=== PATIENT | female | born 1960 | race Caucasian/White ===

== ENCOUNTER 2016-02-23 06:15 | Day surgery (SDC) | payer OTHER ==
[2016-02-23] MEDS ORDERED: LACTATED RINGERS 1,000 ML IV ONE ×2 (07:00→08:29)
[2016-02-23] MEDS ORDERED: MIDAZOLAM 2 MG/2 ML VIAL IVP ONE (08:22)
[2016-02-23] MEDS ORDERED: fentaNYL 250 MCG/5 ML VIAL IVP ONE (08:22)
== END 2016-02-23 06:16 | disposition home or self-care (01) ==
PROC: 0DBE8ZX Excision of Large Intestine, Via Natural or Artificial Opening Endoscopic, Diagnostic (ICD-10-PCS; 2016-02-23)
PROC: 0DB98ZX Excision of Duodenum, Via Natural or Artificial Opening Endoscopic, Diagnostic (ICD-10-PCS; 2016-02-23)
PROC: 0DB68ZX Excision of Stomach, Via Natural or Artificial Opening Endoscopic, Diagnostic (ICD-10-PCS; 2016-02-23)
PROC: 0DB58ZX Excision of Esophagus, Via Natural or Artificial Opening Endoscopic, Diagnostic (ICD-10-PCS; 2016-02-23)
PROC: 0DBL8ZZ Excision of Transverse Colon, Via Natural or Artificial Opening Endoscopic (ICD-10-PCS; principal; 2016-02-23 07:30)
PROC: 0DBP8ZX Excision of Rectum, Via Natural or Artificial Opening Endoscopic, Diagnostic (ICD-10-PCS; 2016-02-23 07:30)
DX: R19.4 Change in bowel habit (principal); D12.3 Benign neoplasm of transverse colon; R10.9 Unspecified abdominal pain; K21.0 Gastro-esophageal reflux disease with esophagitis; K29.80 Duodenitis without bleeding; K44.9 Diaphragmatic hernia without obstruction or gangrene; K29.70 Gastritis, unspecified, without bleeding; K22.2 Esophageal obstruction; R19.7 Diarrhea, unspecified; R06.83 Snoring
CPT/HCPCS: 43239; 45380; 45384; J3010; J7120

== ENCOUNTER 2016-06-11 12:12 | Outpatient (CLI) | payer OTHER | END 2016-06-11 12:13 | disposition home or self-care (01) | DX: Z12.31 Encounter for screening mammogram for malignant neoplasm of breast (principal) ==

== ENCOUNTER 2016-06-13 08:18 | Emergency (ER) | payer OTHER ==
--- NOTE | 2016-06-13 09:40 | ED Physician Documentation ---
History of Present Illness - Stated complaint Stated Complaint: LEG PX - Chief complaint Chief Complaint: General - History obtained from History obtained from: Patient - History of Present Illness Timing: How many weeks ago (1) - Additonal information Additional information: 55 y/o female took a plane trip to [place] one month ago and when she arrived there she noticed some pain in the back of the left knee with some swelling. This seemed to get some better but then the calf began to hurt about a week ago and this is now bad enough that it hurts to be up and around on the leg and the pain is on the medial aspect of the calf. She has not had this before. Review of Systems Constitutional: denies: Fever, Chills, Fatigue, Sweats Eyes: denies: Decreased vision Ears: denies: Ear pain Nose: denies: Congestion Throat: denies: Sore throat Cardiac: denies: Chest pain / pressure, Palpitations Respiratory: denies: Dyspnea, Cough GI: denies: Nausea, Vomiting, Constipation, Diarrhea : denies: Dysuria, Frequency Skin: denies: Rash Musculoskeletal: reports: Extremity pain, Extremity swelling, Pain with weight bearing. denies: Neck pain, Back pain Neurologic: denies: Generalized weakness, Focal weakness, Numbness PD PAST MEDICAL HISTORY - Past Medical History Cardiovascular: None Respiratory: None Endocrine/Autoimmune: HyPOthyroidism GI: GERD, Other : None HEENT: None Psych: Anxiety, Claustrophobia Musculoskeletal: None Derm: None - Present Medications Home Medications: Ambulatory Orders Medication Instructions Recorded Confirmed Fluticasone Propionate [Flonase 9.9 ml NS BID 02/20/16 06/13/16 Allergy Relief] Liothyronine Sodium [Cytomel] 25 mcg PO TID 02/20/16 06/13/16 Loperamide [Imodium] 2 mg PO TID 02/20/16 06/13/16 diphenhydrAMINE [Benadryl] 25 mg PO ONCE 02/20/16 06/13/16 - Allergies Allergies/Adverse Reactions: Allergies Allergy/AdvReac Type Severity Reaction Status Date / Time Sulfa (Sulfonamide AdvReac Headache Verified 02/20/16 13:15 Antibiotics) - Social History Does the pt smoke?: No Smoking Status: Never smoker Does the pt drink ETOH?: Yes Does the pt have substance abuse?: No PD ED PE NORMAL - Vitals Vital signs reviewed: Yes (hypertensive) - General General: Alert and oriented X 3, No acute distress, Well developed/nourished - HEENT HEENT: Atraumatic, PERRL, EOMI - Neck Neck: Supple, no meningeal sign - Respiratory Respiratory: No respiratory distress - Derm Derm: Normal color, Warm and dry, No rash - Extremities Extremities: No deformity, Other (There is trace sock edema to the left foot. There is pain to the medial calf without palpable cord. There is pain with dorsiflexion over the medial calf. There is pain in the posterior knee with a small bakers cyst. distal N/V is intact. ) - Neuro Neuro: No motor deficit, No sensory deficit - Psych Psych: Normal mood, Normal affect Results - Vitals Vitals: Vital Signs - 24 hr 06/13/16 06/13/16 06/13/16 08:20 10:21 12:20 Temperature 36.6 C 36.4 C L Heart Rate 78 76 68 Respiratory 16 14 16 Rate Blood Pressure 164/102 H 160/100 H 156/104 H O2 Saturation 98 95 96 Oxygen O2 Source Room air - Rads (name of study) Duplex veins left Radiology: Prelim report reviewed (Impression: 1. No evidence for deep venous thrombosis. 2. A to severe left popliteal fossa cysts (Fontaine's cyst)), EMP read indepedently, See rad report PD MEDICAL DECISION MAKING - ED course Complexity details: reviewed results, re-evaluated patient, considered differential, d/w patient ED course: 55 y/o female with left calf pain has a normal appearing venous duplex and a fontaine's cyst Departure - Departure Disposition: 01 Home, Self Care Clinical Impression: Fontaine's cyst of knee Qualifiers: Laterality: left Qualified Code(s): M71.22 - Synovial cyst of popliteal space [ Fontaine], left knee Condition: Stable Instructions: ED Cyst Fontaine Follow-Up: Brian Larson DO [Primary Care Provider] - Comments: Today in the Emergency Department your blood pressure was elevated. This can happen from the stress of the visit itself, from a current illness or circumstance or from uncontrolled hypertension. If you take blood pressure medications take your usual mediations, have your blood pressure re-checked in an appropriate setting and follow up any elevation with your primary care doctor. Discharge Date/Time: 06/13/16 12:21
--- NOTE | 2016-06-13 11:41 | Ultrasound Preliminary Report ---
Exam: US Duplex Ext Veins Left IMPRESSION: 1. No evidence for deep venous thrombosis. 2. A 2 cm left popliteal fossa cyst (Fontaine's cyst) [facility] SITE ID: [id number]
--- NOTE | 2016-06-13 11:44 | Ultrasound Report ---
EXAM: RIGHT/LEFT LOWER EXTREMITY VENOUS ULTRASOUND EXAM DATE: 06/13/2016 11:19 AM. CLINICAL HISTORY: Left leg pain and swelling S/P plane travel. COMPARISON: None. TECHNIQUE: Real-time sonographic vascular imaging was performed by the warehouse associate through the lower extremity utilizing both color-flow and Doppler spectral analysis. Multiple product support sales representative static anay ges were saved for review. FINDINGS: Common Femoral Vein (CFV): Normal. CFV-GSV Junction: Normal. Profunda Femoral Vein (PFV): Normal. Femoral Vein (FV) Prox: Normal. Femoral Vein (FV) Mid: Normal. Femoral Vein (FV) Dist: Normal. Popliteal Vein: Normal. Posterior Tibial Veins: Normal. Peroneal Veins: Normal. Other: Small 1.9 x 2.0 x 0.9 cm fluid collection in the left popliteal fossa IMPRESSION: 1. No evidence for deep venous thrombosis. 2. A 2 cm left popliteal fossa cyst (Fontaine's cyst) [facility] Referring Provider Line: [phone] SITE ID: [id number]
[2016-06-13 12:21] VITALS: BP 156/104
== END 2016-06-13 12:21 | disposition home or self-care (01) ==
LOC: ED 08:18
DX: M71.22 Synovial cyst of popliteal space [Baker], left knee (principal); M79.662 Pain in left lower leg; R03.0 Elevated blood-pressure reading, without diagnosis of hypertension
CPT/HCPCS: 99283

== ENCOUNTER 2022-03-22 09:25 | Outpatient (CLI) | payer OTHER ==
--- NOTE | 2022-03-23 12:22 | Mammography Report ---
BILATERAL DIGITAL SCREENING MAMMOGRAM 3D/2D: 03/22/2022 CLINICAL: Routine screening. Comparison is made to exams dated: 06/11/2016 mammogram, 01/08/2011 mammogram, and 08/14/2007 mammogram - [facility]. Both breasts are almost entirely fatty (category a/<25% glandular tissue). No significant masses, calcifications, or other findings are seen in either breast. There has been no significant interval change. IMPRESSION: NEGATIVE There is no mammographic evidence of malignancy. A 1 year screening mammogram is recommended. Based on the Tyrer Cuzick model (a risk assessment model) the patients lifetime risk is 5.8% and her 10 year risk is 2.2%. According to the ACR, ACS, and NCCN guidelines, an annual breast MRI exam natalya g with mammogram is recommended if the patients lifetime risk is 20% or greater. This exam was interpreted at Station ID: [id number]. NOTE: For mammograms, a report in lay terms will be sent to the patient. Approximately 15% of breast malignancies will not be visualized mammographically. In the management of a palpable breast mass, a negative mammogram must not discourage biopsy of a clinically suspicious lesion. Electronically Signed By: Philly saldana/saritha:03/22/2022 17:46:51 ACR BI-RADS Category 1: Negative 3341F PARENCHYMAL PATTERN: (F) - The breast(s) demonstrate(s) diffuse fatty replacement. BI-RADS CATEGORY: (1) - 1 RECOMMENDATION: (ANNUAL) - Recommend routine annual screening mammography. [id number] 1 year screening LATERALITY: (B)
== END 2022-03-22 09:26 | disposition home or self-care (01) ==
LOC: DI.N 09:25
DX: Z12.31 Encounter for screening mammogram for malignant neoplasm of breast (principal)